=== PATIENT | female | born 1965 ===

== ENCOUNTER 2019-08-06 07:38 | Outpatient (CLI) | payer OTHER | END 2019-08-06 23:59 | disposition home or self-care (01) | LOC: CVU 07:38 | PROVIDERS: ATTEND Internal Medicine Cardiovascular Disease | DX: I07.1 Rheumatic tricuspid insufficiency (principal) | CPT/HCPCS: 0399T; 93306 ==

== ENCOUNTER 2019-09-03 10:55 | Outpatient (CLI) | payer OTHER | END 2019-09-03 23:59 | disposition home or self-care (01) | LOC: CFH 10:55 | PROVIDERS: ATTEND Physician Assistant Medical | DX: I10 Essential (primary) hypertension (principal); R07.9 Chest pain, unspecified | CPT/HCPCS: 71046 ==

== ENCOUNTER → 2020-02-06 | Outpatient (CLI) | payer OTHER | END | disposition home or self-care (01) | LOC: CFH 13:35 | PROVIDERS: ATTEND Nurse Practitioner Family | DX: R05 Cough (principal); Z90.49 Acquired absence of other specified parts of digestive tract | CPT/HCPCS: 70486; 71250 ==